=== PATIENT | male | born 2000 | race Caucasian/White ===

== ENCOUNTER 2021-08-13 12:13 | Emergency (ER) | payer OTHER ==
[2021-08-13 12:27] VITALS: BP 135/83; PULSE 68; TEMP 97.7; BMI 23.1
== END 2021-08-13 13:06 | disposition home or self-care (01) ==
LOC: JERFT 12:13
DX: K08.89 Other specified disorders of teeth and supporting structures (principal)
CPT/HCPCS: 99281-25